=== PATIENT | female | born 1955 | race African-American/Black ===

== ENCOUNTER 2017-02-22 17:51 | Emergency (ER) | payer OTHER ==
[~2017-02-22] VITALS: Ht 162.6 cm; Wt 72.6 kg
[2017-02-22] MEDS ORDERED: Metoclopramide 10mg/2ml Inj IM SCH (18:15)
[2017-02-22] MEDS ORDERED: Metoclopramide 10mg/2ml Inj IM ONE (18:30)
--- NOTE | 2017-02-22 19:00 | Emergency Room Report ---
History of Present Illness General Chief Complaint: Headache Source: Patient Present Illness HPI 61-year-old female presents emergency department complaining of 10 out of 10 in severity left-sided pulsatile headache which had slow progression with associated nausea and vomiting. Patient has a history of migraines however she states she hasn't had a migraine for several years. She also reports photophobia. Patient states she was previously diagnosed with high blood pressure however at her last PCP visit 2 years ago patient was told to DC hypertensive medications as she no longer had elevated BP. She denies trauma or fall ,denies weakness, denies abdominal pain. Patient states she took Advil yesterday which provided minimal relief and had return of headache approximately 4 hours after. Patient denies fevers or chills, denies dysuria or hematuria. Denies CP, Palpitations, LOC, AMS, dizziness, Changes in Vision, Sensation, paresthesias, or a sudden severe headache. Allergies: Coded Allergies: CODEINE (Verified Allergy, Unknown, 02/22/17) Patient History Past Medical History: see triage record Past Surgical History: none Pertinent Family History: none Now: No Immunizations: UTD Reviewed Nursing Documentation: PMH: Agreed, PSxH: Agreed Nursing Documentation-PMH Past Medical History: No Stated History Review of Systems All Other Systems: negative except mentioned in HPI Physical Exam Vital Signs Date Time Temp Pulse Resp B/P Pulse Ox O2 Delivery O2 Flow Rate FiO2 02/22/17 17:54 98.6 101 15 170/119 96 Room Air Sp02 EP Interpretation: reviewed, abnormal - elevated BP General Appearance: alert, GCS 15, non-toxic, mild distress Head: normocephalic, atraumatic Eyes: bilateral eye PERRL, bilateral eye normal inspection ENT: hearing grossly normal, normal pharynx, no angioedema, normal voice Neck: full range of motion, no meningismus, no bony tend, supple/symm/no masses Respiratory: lungs clear, normal breath sounds, speaking full sentences Cardiovascular #1: regular rate, rhythm, no edema Gastrointestinal: normal bowel sounds, non tender, soft, no guarding, no rebound Rectal: deferred Genitourinary: normal inspection, no CVA tenderness Musculoskeletal: back normal, gait/station normal, normal range of motion, non- tender Neurologic: alert, oriented x3, responsive, motor strength/tone normal, sensory intact, cerebellar normal, normal gait, speech normal, no pronator, other - isolated droop noted to the left upper lip, pt is able to smile, and raise eyebrows, equal small equipment operator strength , no motor weakness detected. Psychiatric: judgement/insight normal, memory normal, mood/affect normal Skin: normal color, no rash, warm/dry, well hydrated Lymphatic: normal inspection Medical Decision Making PA Attestation Dr. pereira is my supervising Physician whom patient management has been discussed with. Diagnostic Impression: Primary Impression: Headache Qualified Codes: R51 - Headache Additional Impressions: UTI (urinary tract infection) Qualified Codes: N30.00 - Acute cystitis without hematuria HTN (hypertension) Qualified Codes: I10 - Essential (primary) hypertension ER Course 61-year-old female presents emergency department complaining of 10 out of 10 in severity left-sided pulsatile headache which had slow progression with associated nausea and vomiting. Patient has a history of migraines however she states she hasn't had a migraine for several years. She also reports photophobia. Patient states she was previously diagnosed with high blood pressure however at her last PCP visit 2 years ago patient was told to DC hypertensive medications as she no longer had elevated BP. She denies trauma or fall ,denies weakness, denies abdominal pain. Patient states she took Advil yesterday which provided minimal relief and had return of headache approximately 4 hours after. Patient denies fevers or chills, denies dysuria or hematuria. Denies CP, Palpitations, LOC, AMS, dizziness, Changes in Vision, Sensation, paresthesias, or a sudden severe headache. Ddx considered but are not limited to migraine, SAH, Psedudo motor Cerebri, CVA , Mass lesion, Cluster POTTS, Tension POTTS, Post lumbar puncture POTTS, HTN Urgency Vital signs: pt. is afebrile, has elevated BP readings H&PE are most consistent with migraine headache, however due to elevated BP and mild droop isolated to only the left upper lip will do CT imaging. No focal neurological deficit noted otherwise. ORDERS: - UA: moderate bacteria, elevated wbc's and leuks, consistent with UTI -CT Head No contrast : No evidence of acute fracture, hemorrhage, or intracranial process Per: official radiology report. ED INTERVENTIONS: - Reglan IM -Tylenol PO -Clonidine 0.2mg --Upon re-evaluation of pt. her POTTS has subsided with above interventions. d/w pt. the results of her imaging and lab work. also d/w pt. that I will be starting her back on her previously prescribed HTN medication: lisinopril, and that she needs to monitor BP at home, and to follow up in 3-5 days with her PCP. daughter is also with pt. and this treatment plan was d/w both of them, they verbalize their understanding and agreement. Pt. was instructed to return promptly to the ED with worsening or new symptoms. DISCHARGE: At this time pt. is stable for d/c to home. Will provide printed patient care instructions, and any necessary prescriptions. Care plan and follow up instructions have been discussed with the patient prior to discharge. Labs Test 02/22/17 19:07 Urine Color Yellow Urine Appearance Clear Urine pH 6 (4.5-8.0) Urine Specific [place] 1.025 (1.005-1.035) Urine Protein 4+ (NEGATIVE) Urine Glucose (UA) Negative (NEGATIVE) Urine Ketones 2+ (NEGATIVE) Urine Occult Blood 2+ (NEGATIVE) Urine Nitrite Negative (NEGATIVE) Urine Bilirubin Negative (NEGATIVE) Urine Urobilinogen 1 MG/DL (0.0-1.0) Urine Leukocyte Esterase 3+ (NEGATIVE) Urine RBC 5-10 /HPF (0 - 2) Urine WBC 10-15 /HPF (0 - 2) Urine Squamous Epithelial Cells Moderate /LPF (NONE/OCC) Urine Amorphous Sediment Few /LPF (NONE) Urine Bacteria Moderate /HPF (NONE) Last Vital Signs Date Time Temp Pulse Resp B/P Pulse Ox O2 Delivery O2 Flow Rate FiO2 02/22/17 17:54 98.6 101 15 170/119 96 Room Air Disposition: HOME, SELF-CARE Condition: Stable Scripts Metoclopramide Hcl* (REGLAN*) 10 Mg Tablet 10 MG ORAL THREE TIMES A DAY for Nausea & Vomiting, #10 TAB Prov: Ninoska Griggs P.A. 02/22/17 Lisinopril* (ZESTRIL*) 10 Mg Tablet 10 MG ORAL DAILY for 30 Days, #30 TAB Prov: Ninoska Griggs P.A. 02/22/17 Acetaminophen* (TYLENOL EXTRA STRENGTH*) 500 Mg Tablet 500 MG ORAL Q6H, #20 TAB 0 Refills Prov: Ninoska Griggs P.A. 02/22/17 Nitrofurantoin Monohyd/M-Cryst* (MACROBID 100 MG*) 100 Mg Capsule 100 MG ORAL EVERY 12 HOURS for 5 Days, #10 CAP Prov: Ninoska Griggs 02/22/17 Patient Instructions: Managing Your High Blood Pressure, Migraine Headache, Urinary Tract Infection, [id number] Additional Instructions: Take medications as directed. Follow up with PCP in 3-5 days Return sooner to ED if new symptoms occur, or current symptoms become worse. - Please note that this Emergency Department Report was dictated using [employer]ice technology software, occasionally this can lead to erroneous entry secondary to interpretation by the dictation equipment. Ninoska Griggs Feb 22, 2017 19:00
[2017-02-22 19:33] VITALS: BP 172/104
[2017-02-22 20:00] LABS: APPEARANCE,URINE CLEAR; KETONES,URINE 2+ (NEGATIVE); LEUKOCYTE ESTERASE ,URINE 3+ (NEGATIVE); NITRITE,URINE NEGATIVE (NEGATIVE); PH,URINE 6 (4.5-8.0); PROTEIN,URINE 4+ (NEGATIVE); UROBILINOGEN,URINE 1 MG/DL (0.0-1.0)
[2017-02-22 20:06] LABS: BACTERIA,URINE MODERATE /HPF; SQUAMOUS EPITHELIAL CELL,UR MODERATE /LPF (NONE/OCC)
[2017-02-22 20:07] LABS: AMORPHOUS SEDIMENT,UR FEW /LPF
[2017-02-22] MEDS ORDERED: Lisinopril 10mg tab ORAL ONE (20:15)
[2017-02-22] MEDS ORDERED: cloNIDine 0.2mg Tab ORAL ONE (20:15)
[2017-02-22] MEDS ORDERED: REGLAN10 MG ORAL (21:19)
[2017-02-22] MEDS ORDERED: TYLENOL EXTRA500 MG ORAL (21:19)
[2017-02-22] MEDS ORDERED: ZESTRIL10 M1 ORAL (21:19)
[2017-02-22] MEDS ORDERED: NITROFURANTOIN100 M2 ORAL (21:19)
[2017-02-22 21:33] VITALS: BP 152/120
--- NOTE | 2017-02-23 10:49 | Diagnostic Imaging Report ---
Indications: Cephalgia for 2 days Technique: Continuous helical CT imaging of the brain was performed with automatic exposure control on a Siemens sensation [address] scanner. Axial and coronal images were reconstructed at 5 mm slice thickness and interval. CTDI volume(s): 70 mGy Total DLP: 1400 mGy-cm Findings: Comparison: None Confluent low attenuation is present in the bilateral periventricular white matter. Calcification of falx cerebri. Ventricles, cisterns, and sulci are, diffusely prominent. No evidence of mass or hemorrhage, mass effect, midline shift, hydrocephalus, or increased intracranial pressure. Bone window images are unremarkable. Visualized paranasal sinuses and mastoid air cells are clear. 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 Chronic microvascular ischemic changes bilateral cerebral periventricular white matter. Mild atrophy The CT scanner at [facility] is accredited by the [employer] and the scans are performed using protocols designed to limit radiation exposure to as low as reasonably achievable to attain images of sufficient resolution adequate for diagnostic evaluation.
== END 2017-02-22 21:33 | disposition home or self-care (01) ==
LOC: EMR 19:37
DX: R51 Headache (principal); N39.0 Urinary tract infection, site not specified; I10 Essential (primary) hypertension; Z88.6 Allergy status to analgesic agent
CPT/HCPCS: 70450; 81003; 87086; 87181; 96372; 99284; J2765